=== PATIENT | male | born 1955 | race Caucasian/White ===

== ENCOUNTER → 2018-04-28 | Outpatient (CLI) | payer OTHER ==
[~2018-04-28] MED LIST: METH2.5T PO
== END | disposition home or self-care (01) ==
LOC: CVU 13:41
PROVIDERS: ATTEND Specialist
DX: I35.1 Nonrheumatic aortic (valve) insufficiency (principal); M05.9 Rheumatoid arthritis with rheumatoid factor, unspecified; F41.9 Anxiety disorder, unspecified; R60.0 Localized edema; R06.02 Shortness of breath; J98.4 Other disorders of lung
CPT/HCPCS: 93306; 94060; 94726; 94729